=== PATIENT | male | born 1985 | race Caucasian/White ===

== ENCOUNTER 2018-08-06 13:14 | Emergency (ER) | payer OTHER ==
[2018-08-06 14:23] VITALS: BP 152/91
--- NOTE | 2018-08-06 15:09 | ED ---
Throat Pain/Nasal Congestion - HPI Summary HPI Summary: hordeolum left lower lid for the last several days with worsening symptoms, - History of Current Complaint Chief Complaint: UCEye Time Seen by Provider: 08/06/18 14:59 Hx Obtained From: Patient Onset/Duration: Gradual Onset Severity: Moderate Associated Signs And Symptoms: Positive: Negative - Allergies/Home Medications Allergies/Adverse Reactions: Allergies Allergy/AdvReac Type Severity Reaction Status Date / Time Penicillins Allergy Hives Verified 08/06/18 14:24 shellfish derived Allergy Swelling Verified 08/06/18 14:24 Of Face,Lips,& Throat Home Medications: Home Medications Cetirizine* [ZyrTEC 10 MG TAB*] 10 mg PO DAILY PRN 08/06/18 [History Confirmed 08/06/18] Cholecalciferol TAB* [Vitamin D TAB*] 2,000 units PO BID 08/06/18 [History Confirmed 08/06/18] Clindamycin Phos/Benzoyl Perox [Clinda-Benzoyl Perox 1-5% Pump] 50 gm TP DAILY PRN 08/06/18 [History Confirmed 08/06/18] PMH/Surg Hx/FS Hx/Imm Hx Previously Healthy: Yes Infectious Disease History: No Infectious Disease History: Denies: Traveled Outside the [place] in Last 30 Days - Social History Alcohol Use: Rare Substance Use Type: Reports: None Smoking Status (MU): Never Smoked Tobacco Review of Systems Constitutional: Negative Eyes: Negative ENT: Negative Cardiovascular: Negative Respiratory: Negative Gastrointestinal: Negative Genitourinary: Negative Musculoskeletal: Negative Skin: Negative Neurological: Negative All Other Systems Reviewed And Are Negative: Yes Physical Exam Triage Information Reviewed: Yes Vital Signs On Initial Exam: Initial Vitals Temp Pulse Resp BP Pulse Ox 37.2 C 78 18 152/91 98 08/06/18 14:14 08/06/18 14:14 08/06/18 14:14 08/06/18 14:14 08/06/18 14:14 Vital Signs Reviewed: Yes Appearance: Positive: Well-Appearing Skin: Positive: Warm Eyes: Positive: Other: - external hordeolum right lower lid ENT: Positive: Normal ENT inspection Diagnostics - Vital Signs Vital Signs Temp Pulse Resp BP Pulse Ox 08/06/18 14:14 37.2 C 78 18 152/91 98 - Laboratory Lab Statement: Any lab studies that have been ordered have been reviewed, and results considered in the medical decision making process. EENT Course/Dx - Diagnoses Provider Diagnoses: Hordeolum external Discharge - Sign-Out/Discharge Documenting (check all that apply): Patient Departure All imaging exams completed and their final reports reviewed: No Studies - Discharge Plan Condition: Good Disposition: HOME Prescriptions: Erythromycin OPTH OINT* [Erythromycin 0.5% OPTH OINT*] 1 applic LEFT EYE TID 10 Days #1 ophth.oint Patient Education Materials: Peg (ED) Referrals: Marques Metcalf MD [Primary Care Provider] - - Billing Disposition and Condition Condition: GOOD Disposition: Home
== END 2018-08-06 15:20 | disposition home or self-care (01) ==
LOC: UCCORT 13:14
DX: H00.015 Hordeolum externum left lower eyelid (principal); Z88.0 Allergy status to penicillin
CPT/HCPCS: 99202; G0463